=== PATIENT | female | born 1975 | race African-American/Black ===

== ENCOUNTER 2025-04-03 16:45 | Emergency (ER) | payer OTHER ==
[2025-04-03 17:47] LABS: Absolute Eosinophils 0.3 K/uL (0-0.5); Absolute Lymphocytes (CBC) 2.1 K/uL (0.7-4.9); Absolute Monocytes 0.7 K/uL (0.1-1.3); Absolute Neutrophil 3.6 K/uL (1.8-8.0); Basophils % 0.7 % (0-1.3); Eosinophils % 3.8 % (0-4.4); Hematocrit 38.1 % (36.0-45.0); Hemoglobin 13.3 g/dL (12.0-15.0); Lymphocytes % 31.3 % (15.3-44.8); MCH 32.1 pg (27.0-35.0); MCHC 34.9 g/dL (32.0-36.0); MCV 91.8 fL (80-100); MPV 8.8 fL (7.6-11.3); Monocytes % 10.6 % (3.3-12.3); Neutrophils % 53.6 % (41.7-73.7); Nucleated Red Blood Cells % 0.1 % (0-0); Platelets 219 thou/uL (152-406); RBC Red Blood Cell Count 4.15 M/uL (3.86-4.86); Red Cell Distribution Width 13.6 % (12.1-15.2)
[2025-04-03 17:56] LABS: Urine Bacteria None Seen /HPF (<20); Urine Bilirubin NEGATIVE (Negative); Urine Blood Trace (Negative); Urine Clarity Turbid (Clear); Urine Color Light-Yellow (Yellow); Urine Crystals Unidentified Few /HPF (None Seen); Urine Culture Reflex Order NOT NEEDED; Urine Glucose NEGATIVE (Negative); Urine Ketones NEGATIVE (Negative); Urine Microscopic Reflex YN ORDER UMIC; Urine Nitrite NEGATIVE (Negative); Urine Protein NEGATIVE (Negative); Urine RBC <5 /HPF (None Seen); Urine Urobilinogen Normal (Normal); Urine WBC <5 /HPF (<5); Urine Yeast (Budding) Trace /HPF (None Seen); Urine pH 5.5 (5.0-7.0)
[2025-04-03 18:06] LABS: Albumin 3.6 g/dL (3.4-5.0); Albumin/Globulin Ratio 0.8 (1.1-1.8); Anion Gap 11.7 mEq/L (5.0-15.0); Bilirubin Total 0.4 mg/dL (0.2-1.0); Globulin 4.4 g/dL (2.3-3.5); Potassium 3.7 mEq/L (3.5-5.1)
[2025-04-03] MEDS ORDERED: ONDANSETRON 4 MG/2 ML VIAL ONE (18:16)
[2025-04-03] MEDS ORDERED: KETOROLAC 30 MG/ML INJ ONE (18:17)
[2025-04-03] MEDS ORDERED: NA CHLORIDE 0.9% 1,000 ML ONE (18:17)
--- NOTE | 2025-04-03 19:19 | RAD REPORT ---
EXAMINATION: CT Abdomen Pelvis W Contrast CLINICAL INDICATION: Female, 49 years old. ABD PAIN TECHNIQUE: CT abdomen and pelvis was performed, after the administration of IV contrast, [facility]. Axial, sagittal and coronal reconstructions were obtained. One or more of the following dose reduction techniques were used: Automated exposure control, adjustment of the mA and k V according to patient size, and iterative reconstruction. Unless otherwise specified, incidental findings do not require dedicated imaging follow-up. COMPARISON: No prior exam. FINDINGS: LOWER CHEST: The visualized lung bases are clear. LIVER: Normal in size and contour. Multiple hypoattenuating lesions of the liver, largest in the subc apsular left lobe margin measuring 2.7 cm, showing fluid density. Some of the lesions are less than 1 cm in size, it is difficult to characterize. No other suspicious focal lesion. BILIARY SYSTEM: No suspicious abnormalities. SPLEEN: Normal size. No focal lesion. PANCREAS: No mass, ductal dilation, or ada-pancreatic fluid. ADRENALS: Normal; no mass. KIDNEYS: Normal size and contour. No hydronephrosis. URINARY BLADDER: Unremarkable. GASTROINTESTINAL TRACT: No evidence of free air, significant intra-abdominal free fluid, bowel obstru ction or abscess. APPENDIX: Normal appendix. LYMPH NODES: No lymphadenopathy. MUSCULOSKELETAL: No acute or suspicious osseous abnormality. ADDITIONAL FINDINGS: Bulky appearance of the uterus, especially at the posterior wall where there is heterogeneity and calcifications suggesting an underlying fibroid. Right adnexal 3 cm cystic lesion, favored to be physiologic. IMPRESSION: No acute or concerning abnormalities seen in the abdomen or pelvis. Incidental findings including fibroid uterus.
--- NOTE | 2025-04-03 21:47 | RAD REPORT ---
EXAMINATION: US Transvaginal Study Probe CLINICAL INDICATION: Female 49 years old[address] MAIN 03/2025 ABD PAIN Bed Name: 19 TECHNIQUE: Real-time ultrasonography of the pelvis was performed transvaginally. Color and spectral D oppler evaluation of the ovaries was performed. COMPARISON: No prior exam. FINDINGS: UTERUS AND CERVIX: The uterus measures 10.0 cm in length. Multiple heterogeneous hypoechoic fibroids, largest along the posterior wall measuring up to 3.4 cm. Trace fluid along the cervical canal. The endometrium is normal, 1 cm in thickness. RIGHT OVARY: Normal The right ovary measures 3.1 x 2.4 x 2.8 cm. Normal color and spectral Doppler evaluation of the right ovary.. LEFT OVARY: Normal The left ovary measures 3.0 x 2.3 x 1.9 cm. Normal color and spectral Doppler evaluation of the left ovary.. FREE FLUID: No free fluid. IMPRESSION: Fibroid uterus. No suspicious adnexal abnormalities.
--- NOTE | 2025-04-03 22:18 | EDPHYS ---
Physician Documentation [facility] Name: Doris Monroe Age: 49 yrs Sex: Female : 1975 Arrival Date: 04/03/2025 Time: 16:45 Bed 19 Private MD: ED Physician Filiberto Willson HPI: 04/03 17:13 This 49 yrs old Black Female presents to ER via Ambulatory with complaints of Urinary kb Problem. 17:14 Patient is a 49-year-old female who presents for right groin pain, vomiting, urinary kb frequency that started 1 week ago. States symptoms have been getting worse and she is now unable to tolerate anything by mouth. Reports some diarrhea. Denies fever, dysuria, hematuria.. 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 - Infectious Disease History:: Denies. - Social history:: Smoking status: Patient denies any tobacco usage or history of. ROS: 17:14 Constitutional: As per HPI kb Exam: 17:14 Constitutional: This is a well developed, well nourished patient who is awake, alert, kb and in no acute distress. Head/Face: Normocephalic, atraumatic. ENT: Moist Mucous membranes Respiratory: Respirations even and unlabored. No increased work of breathing. Talking in full sentences Skin: Warm, dry with normal turgor. Normal color. MS/ Extremity: Pulses equal, no cyanosis. Neurovascular intact. Full, normal range of motion. Neuro: Awake and alert, GCS 15, oriented to person, place, time, and situation. 17:14 Abdomen/GI: Inspection: abdomen appears normal, Bowel sounds: normal, Palpation: soft, in all quadrants, mild abdominal tenderness, in the suprapubic area and right lower quadrant, 17:14 Back: CVA tenderness, that is mild, is noted on the right, Vital Signs: 16:59 BP 133 / 86; Pulse 63; Resp 16; Temp 98.7; Pulse Ox 100% ; Weight 99.34 kg; Height 5 db ft. 9 in. ; 18:39 BP 134 / 76; Pulse 59; Resp 18; Pulse Ox 100% on R/A; mb9 19:30 BP 126 / 58; Pulse 60; Resp 18; Pulse Ox 99% ; rg5 20:49 BP 124 / 76; Pulse 61; Resp 18; Pulse Ox 100% ; rg5 22:19 BP 131 / 79; Pulse 64; Resp 18; Pulse Ox 100% on R/A; rg5 16:59 Body Mass Index 32.34 (99.34 kg, 175.26 cm) db MDM: 16:51 Medical Screening Exam initiated kb 22:17 Differential diagnosis: uterine fibroids, urinary tract infection, ovarian torsion, kb appendicitis. Data reviewed: vital signs, nurses notes. I considered the following discharge prescriptions or medication management in the emergency department I discussed and recommended Over The Counter medications, Antibiotics: At this time antibiotics are not recommended. Counseling: I had a detailed discussion with the patient and/or guardian regarding the historical points, exam findings, and any diagnostic results supporting the discharge/admit diagnosis, lab results, radiology results, the need for outpatient follow up, a family practitioner, to return to the emergency department if symptoms worsen or persist or if there are any questions or concerns that arise at home. 04/03 17:03 Order name: CBC with Diff; Complete Time: 17:48 kb 04/03 17:03 Order name: CMP; Complete Time: 18:10 kb 04/03 17:03 Order name: Lipase; Complete Time: 18:10 kb 04/03 17:03 Order name: Test, Urine; Complete Time: 17:56 kb 04/03 17:03 Order name: UA Rfx Ej Cult if indicated; Complete Time: 17:57 kb 04/03 17:03 Order name: CT Abd/Pelvis - IV Contrast Only; Complete Time: 19:24 kb 04/03 19:28 Order name: US Transvaginal Study (Probe); Complete Time: 21:50 kb 04/03 17:03 Order name: IV Saline Lock; Complete Time: 17:38 kb 04/03 17:03 Order name: Labs collected and sent; Complete Time: 17:38 kb 04/03 19:25 Order name: PO challenge; Complete Time: 19:36 kb Administered Medications: 18:25 Drug: Ondansetron IVP 4 mg IVP once; over 2 minutes Route: IVP; Site: left antecubital; mb9 18:55 Follow up: Response: No adverse reaction mb9 18:28 Drug: NS 0.9% IV 1000 ml IV at 1 bolus Per protocol; to be given as a bolus over 60 mb9 minutes Route: IV; Rate: 1 bolus; Site: left antecubital; 22:00 Follow up: IV Status: Completed infusion; IV Intake: 1000ml rg5 18:29 Drug: TORadol - Ketorolac IVP 15 mg IVP once Route: IVP; Site: left antecubital; mb9 18:55 Follow up: Response: No adverse reaction mb9 Disposition: 20:35 I was immediately available on-site in the Emergency Department for consultation in the ms3 care of the patient. Disposition Summary: 04/03/25 22:18 Discharge Ordered Notes: Location: Home kb Condition: Stable kb Diagnosis - Lower abdominal pain, unspecified kb Followup: kb - With: Private Physician - When: 2 - 3 days - Reason: Recheck today's complaints, Continuance of care, Re-evaluation by your physician Followup: kb - With: Emergency Department - When: As needed - Reason: Worsening of condition Discharge Instructions: - Discharge Summary Sheet kb - Pelvic Pain, Female, [id number] kb - Abdominal Pain, Adult, [id number] kb Forms: - Medication Reconciliation Form kb - Antibiotic Education kb - Prescription Opioid Use kb - Patient Portal Instructions kb - Leadership Thank You Letter kb Signatures: Dispatcher [employer] EDClaire Marquis, INTERNAL CARVER-C INTERNAL CARVER-Filiberto Coyne, DO ms3 Alcira Fuentes RN RN Ana Sauceda RN RN mb9 Isac Nunez RN rg5 Corrections: (The following items were deleted from the chart) 17:01 17:01 Allergies: No Known Allergies; db db
--- NOTE | 2025-04-03 22:18 | ER ---
Nurse's Notes [facility] Name: Doris Monroe Age: 49 yrs Sex: Female : 1975 Arrival Date: 04/03/2025 Time: 16:45 Bed 19 Private MD: Diagnosis: Lower abdominal pain, unspecified Presentation: 04/03 16:59 Chief complaint: Patient states: URINARY FREQUENCY WITH VOMITING, RIGHT GROIN PAIN. X 1 db WEEK. Coronavirus screen: Client denies travel out of the [place] in the last 14 days. At this time, the client does not indicate any symptoms associated with coronavirus-19. Ebola Screen: Patient negative for fever greater than or equal to 101.5 degrees Fahrenheit, and additional compatible Ebola Virus Disease symptoms Patient denies exposure to infectious person. Patient denies travel to an Ebola-affected area in the 21 days before illness onset. No symptoms or risks identified at this time. 16:59 Method Of Arrival: Ambulatory db 16:59 Acuity: LEANDER 3 db 16:59 Initial Sepsis Screen: Does the patient meet any 2 criteria? No. Patient's initial db sepsis screen is negative. Does the patient have a suspected source of infection? No. Patient's initial sepsis screen is negative. Risk Assessment: Do you want to hurt yourself or someone else? Patient reports no desire to harm self or others. Onset of symptoms was March 27, 2025. Triage Assessment: 16:59 General: Appears in no apparent distress. comfortable, Behavior is calm, cooperative. db Pain: Complains of pain in pelvis. : Reports urinary frequency. 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 - Infectious Disease History:: Denies. - Social history:: Smoking status: Patient denies any tobacco usage or history of. Screenin:30 [facility] ED Fall Risk Assessment (Adult) History of falling in the last 3 months, mb9 including since admission No falls in past 3 months (0 pts) Confusion or Disorientation No (0 pts) Intoxicated or Sedated No (0 pts) Impaired Gait No (0 pts) Mobility Assist Device Used No (0 pt) Altered Elimination No (0 pt) Score/Fall Risk Level 0 - 2 = Low Risk Oriented to surroundings, Maintained a safe environment, Educated pt \T\ family on fall prevention, incl call for assistance when getting out of bed. Abuse screen: Denies threats or abuse. Nutritional screening: No deficits noted. Tuberculosis screening: No symptoms or risk factors identified. Assessment: 18:29 General: Appears in no apparent distress. Behavior is calm, cooperative. Pain: mb9 Complains of pain in pelvis Quality of pain is described as throbbing. Neuro: D[place]lo Agitation-Sedation Scale (RASS): 0 - Alert and Calm Level of Consciousness is awake, alert, obeys commands, Oriented to person, place, time, situation, Appropriate for age. Cardiovascular: Patient's skin is warm and dry. Respiratory: Airway is patent. GI: Abdomen is round non-distended, Bowel sounds present X 4 quads. Abd is soft Abdomen is tender to palpation in suprapubic area. : Denies burning with urination. EENT: No signs and/or symptoms were reported regarding the EENT system. Derm: Skin is pink, warm \T\ dry. Musculoskeletal: Range of motion: intact in all extremities. 19:15 General: Appears in no apparent distress. comfortable, Behavior is calm, cooperative, rg5 appropriate for age. 19:15 Pain: Complains of pain in abdomen Quality of pain is described as aching. Neuro: Level rg5 of Consciousness is awake, alert, obeys commands, Oriented to person, place, time, situation. Cardiovascular: Patient's skin is warm and dry. Respiratory: Airway is patent. GI: Abdomen is round non-distended, Abd is soft. : No signs and/or symptoms were reported regarding the genitourinary system. EENT: No deficits noted. Derm: Skin is intact, Skin is dry, Skin is normal. Musculoskeletal: Circulation, motion, and sensation intact. Range of motion: intact in all extremities. 20:50 Reassessment: No changes from previously documented assessment. Patient and/or family rg5 updated on plan of care and expected duration. Pain level reassessed. Patient is alert, oriented x 3, equal unlabored respirations, skin warm/dry/pink. 22:19 Reassessment: No changes from previously documented assessment. Patient and/or family rg5 updated on plan of care and expected duration. Pain level reassessed. Patient is alert, oriented x 3, equal unlabored respirations, skin warm/dry/pink. Vital Signs: 16:59 BP 133 / 86; Pulse 63; Resp 16; Temp 98.7; Pulse Ox 100% ; Weight 99.34 kg; Height 5 db ft. 9 in. ; 18:39 BP 134 / 76; Pulse 59; Resp 18; Pulse Ox 100% on R/A; mb9 19:30 BP 126 / 58; Pulse 60; Resp 18; Pulse Ox 99% ; rg5 20:49 BP 124 / 76; Pulse 61; Resp 18; Pulse Ox 100% ; rg5 22:19 BP 131 / 79; Pulse 64; Resp 18; Pulse Ox 100% on R/A; rg5 16:59 Body Mass Index 32.34 (99.34 kg, 175.26 cm) db ED Course: 16:48 Patient arrived in ED. mr 16:50 Alcira Fuentes, ROLANDO is Primary Nurse. db 16:50 Claire Oliveira FNP-C is PHCP. kb 16:51 Filiberto Willson DO is Attending Physician. kb 17:00 Triage completed. db 17:03 Arm band placed on Patient placed in waiting room. db 17:11 Radiology exam delayed due to lab results not completed at this time. IV insertion jc4 attempt and/or patient not having appropriate IV at this time. 17:30 Missed attempt(s): 24 gauge in right antecubital area. Bleeding controlled, band aid bc6 applied, catheter tip intact. 17:39 CBC with Diff Sent. bc6 17:39 CMP Sent. bc6 17:39 Lipase Sent. bc6 17:39 Initial lab(s) drawn, by ri, sent to lab. Inserted saline lock: 24 gauge in left bc6 antecubital area, using aseptic technique. Blood collected. Flushed with 10 mL NS. 18:30 Bed in low position. Call light in reach. Side rails up X 1. Provided Education on: mb9 press call light if needing anything. Client placed on continuous cardiac and pulse oximetry monitoring. NIBP monitoring applied. Door closed. Noise minimized. Warm blanket given. Pillow given. 18:31 No provider procedures requiring assistance completed. mb9 18:40 CT Abd/Pelvis - IV Contrast Only In Process Unspecified. EDMS 20:04 US Transvaginal Study (Probe) In Process Unspecified. EDMS 22:20 IV discontinued, bleeding controlled, No redness/swelling at site. Pressure dressing rg5 applied. Administered Medications: 18:25 Drug: Ondansetron IVP 4 mg IVP once; over 2 minutes Route: IVP; Site: left antecubital; mb9 18:55 Follow up: Response: No adverse reaction mb9 18:28 Drug: NS 0.9% IV 1000 ml IV at 1 bolus Per protocol; to be given as a bolus over 60 mb9 minutes Route: IV; Rate: 1 bolus; Site: left antecubital; 22:00 Follow up: IV Status: Completed infusion; IV Intake: 1000ml rg5 18:29 Drug: TORadol - Ketorolac IVP 15 mg IVP once Route: IVP; Site: left antecubital; mb9 18:55 Follow up: Response: No adverse reaction mb9 Medication: 18:31 VIS not applicable for this client. mb9 Intake: 22:00 IV: 1000ml; Total: 1000ml. rg5 Outcome: 22:18 Discharge ordered by . kb 22:28 Discharged to home ambulatory, rg5 22:28 Condition: stable 22:28 Discharge instructions given to patient, Instructed on discharge instructions, Demonstrated understanding of instructions, follow-up care, 22:28 Patient left the ED. rg5 Signatures: Dispatcher [employer] EDMA Claire Oliveira, HOME HEALTH TRAVEL PT-C HOME HEALTH TRAVEL PT-Ckb Ana Montez, Reg Reg mr Alcira Fuentes, RN RN Ana Sauceda RN RN Ainsa Ferguson Rommel, RN RN rg5 Fidel Aviles [email or web address] Corrections: (The following items were deleted from the chart) 17:01 17:01 Allergies: No Known Allergies; db db 17:02 16:59 Chief complaint: Patient states: URINARY FREQUENCY WITH VOMITING, RIGHT GROIN db PAIN. db
[2025-04-03 22:41] VITALS: TEMP 98.7
[2025-04-03 22:44] VITALS: O2SAT 100
[2025-04-03 22:45] VITALS: BP 131/79
== END 2025-04-03 22:28 | disposition home or self-care (01) ==
LOC: ER 16:45
DX: R10.31 Right lower quadrant pain (principal); R11.10 Vomiting, unspecified
CPT/HCPCS: 85025; 81001; 36415; 81025; 83690; 80053; 74177; 76830; Q9967; J2405; J7030